=== PATIENT | female | born 1950 | race Caucasian/White ===

== ENCOUNTER 2022-04-17 06:00 | Day surgery (SDC) | payer OTHER ==
[~2022-04-17] VITALS: Ht 165.1 cm; Wt 71.7 kg
[2022-04-17] MEDS: fentaNYL CITRATE/PF 100 MCG/2 ML AMP ONE ×3 (09:04→09:09)
[2022-04-17] MEDS: MIDAZOLAM HCL 5 MG/5 ML VIAL ONE ×3 (09:04→09:09)
[2022-04-17 14:06] VITALS: BP_SYST 141
== END 2022-04-17 10:45 | disposition home or self-care (01) ==
LOC: SDS 06:00 → SMU 06:00 → SDS 10:45
PROVIDERS: ATTEND Internal Medicine Gastroenterology
DX: R10.32 Left lower quadrant pain (principal); K63.5 Polyp of colon; K57.30 Diverticulosis of large intestine without perforation or abscess without bleeding; K64.8 Other hemorrhoids; J45.909 Unspecified asthma, uncomplicated; E78.00 Pure hypercholesterolemia, unspecified; Z20.822 Contact with and (suspected) exposure to COVID-19; Z79.899 Other long term (current) drug therapy
CPT/HCPCS: 45385; 87426; 36415; 88305; 99152; G0378; J2250; J3010

== ENCOUNTER 2023-11-05 05:30 | Day surgery (SDC) | payer OTHER ==
[~2023-11-05] VITALS: Ht 165.1 cm; Wt 74.4 kg
[2023-11-05] MEDS ORDERED: SIMETHICONE 40 MG/0.6 ML ML ONE (06:42)
[2023-11-05] MEDS ORDERED: MIDAZOLAM HCL 5 MG/5 ML VIAL ONE (06:43)
[2023-11-05] MEDS ORDERED: MEPERIDINE 100 MG INJ. 100 MG/ML VIAL ONE (06:43)
[2023-11-05] MEDS ORDERED: fentaNYL CITRATE/PF 100 MCG/2 ML AMP ONE (07:21)
[2023-11-05 12:32] VITALS: O2SAT 98
[2023-11-05 13:00] VITALS: BP_SYST 135; PULSE 63; RESP 18
== END 2023-11-05 08:52 | disposition home or self-care (01) ==
LOC: SMU 05:30 → SDS 05:30
PROVIDERS: ATTEND Internal Medicine Gastroenterology
DX: R10.32 Left lower quadrant pain (principal); K59.00 Constipation, unspecified; K57.30 Diverticulosis of large intestine without perforation or abscess without bleeding; K64.8 Other hemorrhoids; I10 Essential (primary) hypertension; J45.909 Unspecified asthma, uncomplicated; E03.9 Hypothyroidism, unspecified; E78.5 Hyperlipidemia, unspecified; Z91.041 Radiographic dye allergy status; Z88.5 Allergy status to narcotic agent; Z88.2 Allergy status to sulfonamides; Z88.8 Allergy status to other drugs, medicaments and biological substances; Z96.651 Presence of right artificial knee joint; Z90.49 Acquired absence of other specified parts of digestive tract; Z90.710 Acquired absence of both cervix and uterus; Z98.890 Other specified postprocedural states; Z79.890 Hormone replacement therapy; Z86.010 Personal history of colon polyps
CPT/HCPCS: 45378; 99152; G0378; J2250; J3010; J2175